=== PATIENT | female | born 1975 | race Caucasian/White ===

== ENCOUNTER 2016-10-21 08:01 | Emergency (ER) | payer BC ==
[2016-10-21] MEDS ORDERED: Sodium Chloride 0.9% 10 ML Syringe FLUSH PRN (08:48)
[2016-10-21] MEDS ORDERED: Prochlorperazine 10 MG/2 ML SDV IVPUSH ONE (08:49)
[2016-10-21] MEDS ORDERED: Ketorolac 30 MG/ML SDV IVPUSH ONE (08:50)
[2016-10-21] MEDS ORDERED: diphenhydrAMINE 50 MG/ML SDV IVPUSH ONE (08:50)
--- NOTE | 2016-10-21 09:29 | CR ---
Chest: Portable view of the chest was obtained. Comparison: Previous chest x-ray of 06/07/16. Heart size and mediastinum are normal. Minimal linear density is seen off the left cardiac apex which is believed to represent minimal scar. Lungs otherwise are clear. Previous cervical spine surgery is noted. Impression: 1. Nothing acute is appreciated on portable chest x-ray. Incidental findings as described above. Diagnostic code #2
--- NOTE | 2016-10-21 09:29 | CT ---
Head CT Technique: Multiple axial sections through the brain were obtained. Intravenous contrast was not utilized. Comparison: Previous MRI brain dated 04/21/12. Findings: Ventricles along with basal cisterns and sulci over the convexities are within normal limits for the patient's age. No abnormal parenchymal densities are seen. No evidence of intracranial hemorrhage. No midline shift or mass effect is seen. Bone window settings were reviewed which shows no discrete calvarial abnormality. Rounded soft tissue abnormality is seen within the right side of the sphenoid sinus which is felt compatible with an incidental retention cyst. This finding measures approximately 1.6 cm. Impression: 1. Right-sided retention cyst incidentally noted within the sphenoid sinus. 2. Other portions of the noncontrast head CT study appear within normal limits. Diagnostic code #2
--- NOTE | 2016-10-21 10:36 | EDM.PDOC ---
ED HPI GENERAL MEDICAL PROBLEM - General Chief Complaint: Headache Stated Complaint: HEAD PAIN Time Seen by Provider: 10/21/16 08:34 Source of Information: Reports: Patient History Limitations: Reports: No Limitations - History of Present Illness INITIAL COMMENTS - FREE TEXT/NARRATIVE: The patient presents with a headache. She has a history of migraines. She had a surgery to decompress her occipital nerve back in May. She has not had a migraine since. Last night she developed a headache and she noticed her blood pressure was elevated 150s over 100s. She denies numbness or weakness. This is like her migraines. It starts in the back of the head and goes to the front. She has no fever, chills, cough, chest pain or shortness of breath. She does feel like she has palpitations. Onset: Gradual Duration: Day(s): (Last night) Location: Reports: Head Quality: Reports: Ache Severity: Severe Improves with: Reports: None Worsens with: Reports: None Context: Reports: Activity Associated Symptoms: Reports: No Other Symptoms Head Pain Score (Numeric/FACES): 7 - Related Data Allergies Allergy/AdvReac Type Severity Reaction Status Date / Time morphine Allergy Difficulty Verified 08/28/15 16:29 Breathing Home Meds: Home Meds Estradiol 2 mg PO BEDTIME 09/11/14 [History] Past Medical History HEENT History: Reports: Impaired Vision Other HEENT History: wears eyeglasses Cardiovascular History: Reports: Heart Murmur, Hypertension Gastrointestinal History: Reports: GERD Genitourinary History: Reports: Renal Calculus 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: Musculoskeletal History: Reports: Back Pain, Chronic Neurological History: Reports: Migraines, Other (See Below) Other Neuro History: decompression of the occipital nerve Psychiatric History: Reports: Anxiety Hematologic History: Reports: Anemia - Infectious Disease History Infectious Disease History: Reports: Chicken Pox, Measles - Past Surgical History Other Neurological Surgeries/Procedures: patient states she has had two back surgery Social & Family History - Tobacco Use Smoking Status *Q: Never Smoker Second Hand Smoke Exposure: No - Caffeine Use Caffeine Use: Reports: Coffee - Recreational Drug Use Recreational Drug Use: No ED ROS GENERAL - Review of Systems Review Of Systems: See Below Constitutional: Reports: No Symptoms HEENT: Reports: No Symptoms Respiratory: Reports: No Symptoms Cardiovascular: Reports: Palpitations. Denies: Chest Pain Endocrine: Reports: No Symptoms GI/Abdominal: Reports: No Symptoms : Reports: No Symptoms Musculoskeletal: Reports: No Symptoms Skin: Reports: No Symptoms - Physical Exam Exam: See Below Exam Limited By: No Limitations General Appearance: Alert, No Apparent Distress Ears: Normal External Exam Nose: Normal Inspection Head Exam: Atraumatic, Normocephalic Neck: Normal Inspection Respiratory/Chest: No Respiratory Distress, Lungs Clear, Normal Breath Sounds Cardiovascular: Regular Rate, Rhythm, No Edema, No Murmur GI/Abdominal: Soft, Non-Tender, No Organomegaly, No Mass Neuro Exam (Abbreviated): Alert, Oriented, No Motor/Sensory Deficits EKG INTERPRETATION EKG Date: 10/21/16 Time: 08:58 Rhythm: NSR Rate (Beats/Min): 83 [place]: Normal P-Wave: Present QRS: Normal ST-T: Normal QT: Normal Course - Vital Signs Last Recorded V/S: Last Vital Signs Temp 97.8 F 10/21/16 08:28 Pulse 104 H 10/21/16 08:28 Resp 16 10/21/16 08:28 BP 170/111 H 10/21/16 08:28 Pulse Ox 98 10/21/16 08:28 - Orders/Labs/Meds Orders: Active Orders 24 hr Category Date Time Status Cardiac Monitoring [RC] . DIRECTED Care 10/21/16 08:48 Active EKG Documentation Completion [RC] STAT Care 10/21/16 08:48 Active Peripheral IV Care [RC] . DIRECTED Care 10/21/16 08:48 Active HCG QUANTITATIVE,SERUM [CHEM] Stat Lab 10/21/16 09:10 Received Sodium Chloride 0.9% [Saline Flush] Med 10/21/16 08:48 Active 10 ml FLUSH ASDIRECTED PRN Peripheral IV Insertion Adult [OM.PC] Stat Oth 10/21/16 08:48 Ordered Medication Orders Sodium Chloride (Saline Flush) 10 ml FLUSH ASDIRECTED PRN PRN Reason: Keep Vein Open Last Admin: 10/21/16 09:00 Dose: 10 ml Labs: Laboratory Tests 10/21/16 10/21/16 Range/Units 09:10 09:10 WBC 7.63 (3.98-10.04) K/mm3 RBC 4.40 (3.98-5.22) M/mm3 Hgb 14.0 (11.2-15.7) gm/L Hct 40.2 (34.1-44.9) % MCV 91.4 (79.4-94.8) fl MCH 31.8 (25.6-32.2) pg MCHC 34.8 (32.2-35.5) g/dl RDW Std Deviation 41.9 (36.4-46.3) fL Plt Count 231 (182-369) K/mm3 MPV 10.1 (9.4-12.3) fl Neut % (Auto) 63.8 (34.0-71.1) % Lymph % (Auto) 23.7 (19.3-51.7) % [place] % (Auto) 11.0 (4.7-12.5) % Eos % (Auto) 0.8 (0.7-5.8) Baso % (Auto) 0.4 (0.1-1.2) % Neut # (Auto) 4.87 (1.56-6.13) K/mm3 Lymph # (Auto) 1.81 (1.18-3.74) K/mm3 [place] # (Auto) 0.84 H (0.24-0.36) K/mm3 Eos # (Auto) 0.06 (0.04-0.36) K/mm3 Baso # (Auto) 0.03 (0.01-0.08) K/mm3 Sodium 138 (136-145) mEq/L Potassium 3.4 L (3.5-5.1) mEq/L Chloride 102 (98-107) mEq/L Carbon Dioxide 26 (21-32) mEq/L Anion Gap 13.4 (5-15) BUN 11 (7-18) mg/dL Creatinine 0.9 (0.55-1.02) mg/dL Est Cr Clr Drug Dosing TNP Estimated GFR (MDRD) > 60 (>60) mL/min BUN/Creatinine Ratio 12.2 L (14-18) Glucose 117 H (74-106) mg/dL Calcium 9.5 (8.5-10.1) mg/dL Total Bilirubin 0.3 (0.2-1.0) mg/dL AST 14 L (15-37) U/L ALT 21 (14-59) U/L Alkaline Phosphatase 72 (46-116) U/L Troponin I < 0.017 (0.00-0.056) ng/mL Total Protein 7.3 (6.4-8.2) g/dl Albumin 3.6 (3.4-5.0) g/dl Globulin 3.7 gm/dL Albumin/Globulin Ratio 1.0 (1-2) Meds: Medications Generic Name Dose Route Start Last Admin Trade Name Freq PRN Reason Stop Dose Admin Sodium Chloride 10 ml 10/21/16 08:48 10/21/16 09:00 Saline Flush FLUSH 10 ml ASDIRECTED PRN Administration Keep Vein Open Discontinued Medications Generic Name Dose Route Start Last Admin Trade Name Freq PRN Reason Stop Dose Admin Diphenhydramine HCl 50 mg 10/21/16 08:50 10/21/16 08:54 Benadryl IVPUSH 10/21/16 08:51 50 mg ONETIME ONE Administration Ketorolac Tromethamine 30 mg 10/21/16 08:50 10/21/16 08:56 Toradol IVPUSH 10/21/16 08:51 30 mg ONETIME ONE Administration Prochlorperazine Edisylate 10 mg 10/21/16 08:49 10/21/16 08:58 Compazine IVPUSH 10/21/16 08:50 10 mg ONETIME ONE Administration - Re-Assessments/Exams Free Text/Narrative Re-Assessment/Exam: 10/21/16 10:39 I ordered an IV saline lock, labs, EKG, CT of her head, and CXR. Her EKG shows a NSR with no acute changes. Her CT of her head shows a right sided retention cyst incidentally noted within the sphenoid sinus. Other portions of the noncontrast head CT study appear within normal limits. Her CXR looks good. All her labs look good. She feels better. Departure - Departure Time of Disposition: 10:50 Disposition: Home, Self-Care 01 Condition: Good Clinical Impression: Migraine, Palpitations - Discharge Information Referrals: Magaly Rangel P[employer]ER PATTERN INSPECTOR [Primary Care Provider] - Forms: ED Department Discharge Additional Instructions: Continue with your medications. Go home and get some rest today. Please return if you are worse. Follow up with Magaly Rangel in a week. - My Orders Last 24 Hours: My Active Orders 10/21/16 08:48 Cardiac Monitoring [RC] . DIRECTED EKG Documentation Completion [RC] STAT Peripheral IV Care [RC] . DIRECTED Sodium Chloride 0.9% [Saline Flush] 10 ml FLUSH ASDIRECTED PRN Peripheral IV Insertion Adult [OM.PC] Stat 10/21/16 09:10 HCG QUANTITATIVE,SERUM [CHEM] Stat - Assessment/Plan Last 24 Hours: My Active Orders 10/21/16 08:48 Cardiac Monitoring [RC] . DIRECTED EKG Documentation Completion [RC] STAT Peripheral IV Care [RC] . DIRECTED Sodium Chloride 0.9% [Saline Flush] 10 ml FLUSH ASDIRECTED PRN Peripheral IV Insertion Adult [OM.PC] Stat 10/21/16 09:10 HCG QUANTITATIVE,SERUM [CHEM] Stat
[2016-10-21 11:15] VITALS: BP 125/71
== END 2016-10-21 11:12 | disposition home or self-care (01) ==
LOC: JD.ED 08:01
DX: G43.909 Migraine, unspecified, not intractable, without status migrainosus (principal); R00.2 Palpitations; I10 Essential (primary) hypertension; K21.9 Gastro-esophageal reflux disease without esophagitis; Z87.442 Personal history of urinary calculi; Z86.2 Personal history of diseases of the blood and blood-forming organs and certain disorders involving the immune mechanism; Z88.5 Allergy status to narcotic agent
CPT/HCPCS: 36415; 70450; 71010; 80053; 84484; 84702; 85025; 93005; 96374; 96375; 99285; J0780; J1200; J1885; J7050; 99284

== ENCOUNTER 2019-10-13 06:35 | Day surgery (SDC) | payer OTHER ==
--- NOTE | 2019-10-12 09:25 | PCM.PREANE ---
Preanesthetic Assessment - Procedure Proposed Procedure: Left KVA with ACL reconstruction with allograft - Anesthesia/Transfusion/Family Hx Anesthesia History: Prior Anesthesia Without Reaction Family History of Anesthesia Reaction: No Transfusion History: No Prior Transfusion(s) Intubation History: Unknown - Review of Systems General: No Symptoms Pulmonary: No Symptoms (ETOH:rarely) Cardiovascular: No Symptoms (history of elevated cholesterol/HTN) Gastrointestinal: No Symptoms (GERD-rarely) Neurological: No Symptoms (History of chronic lower back pain/ back surgery:L5- S1 fusion times 2: 2008), Headache (migraines) Other: Reports: None, Sinus Problem (allergic rhinitis), Neck Pain (Prior C- spine surgery: C5-C6 2010), Depression, Anxiety - Physical Assessment NPO Status Date: 10/12/19 NPO Status Time: 19:00 Vital Signs: HR:70 B/P:115/82 Sat:100% Resp:16 Temp:97 Height: 1.68 m Weight: 87.543 kg ASA Class: 2 Mental Status: Alert & Oriented x3 Airway Class: Mallampati = 2 Dentition: Reports: Normal Dentition, Caries Thyro-Mental Finger Breadths: 3 Mouth Opening Finger Breadths: 3 ROM/Head Extension: Full Lungs: Clear to Auscultation, Normal Respiratory Effort Cardiovascular: Regular Rate, Regular Rhythm, No Murmurs - Lab Values: Laboratory Last Values MRSA (PCR) Negative 10/06/19 12:56 All labs reviewed and noted and within acceptable ranges to proceed with scheduled procedure. - Imaging/EKG Impressions: CXR: negative/Previous C-spine surgery noted. EKG: SR rate=82, mild Twave inversion noted in leads III, and V3. - Allergies Allergies/Adverse Reactions: Allergies Allergy/AdvReac Type Severity Reaction Status Date / Time morphine Allergy Difficulty Verified 10/12/19 13:40 Breathing - Anesthesia Plan Pre-Op Medication Ordered: None - Acknowledgements Anesthesia Type Planned: General Anesthesia (Left adductor canal block under US guidance for post operative pain control requested by Dr. 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: Musculoskeletal History: Reports: Back Pain, Chronic Neurological History: Reports: Migraines, Other (See Below) Other Neuro History: decompression of the occipital nerve Psychiatric History: Reports: Anxiety Hematologic History: Reports: Anemia - Infectious Disease History Infectious Disease History: Reports: Chicken Pox, Measles - Past Surgical History Other Neurological Surgeries/Procedures: patient states she has had two back surgery - HOME MEDS Home Medications: Home Meds Eletriptan [Relpax] 40 mg PO ASDIRECTED PRN 10/12/19 [History] Estrogens, Conjugated [Premarin] 1.25 mg PO DAILY 10/12/19 [History] FLUoxetine HCl [Fluoxetine HCl] 20 mg PO DAILY 10/12/19 [History] lisinopriL [Lisinopril] 10 mg PO DAILY 10/12/19 [History] Acetaminophen/HYDROcodone [[place] 325-5 MG] 1 - 2 tab PO Q6H PRN #40 tablet 10/13/19 [Rx] Aspirin 325 mg PO BID #84 tab 10/13/19 [Rx] Cyclobenzaprine [Flexeril] 10 mg PO Q12H PRN #30 tab 10/13/19 [Rx] - CURRENT (IN HOUSE) MEDS Current Meds: Current Medications Lactated Ringer's (Ringers, Lactated) 1,000 mls @ 125 mls/hr IV ASDIRECTED [place] Lidocaine/Sodium Bicarbonate (Buffered Lidocaine 1% In Ns 8.4%) 0.25 ml IDERM ONETIME PRN PRN Reason: Prior to IV Start Sodium Chloride (Saline Flush) 10 ml FLUSH ASDIRECTED PRN PRN Reason: Keep Vein Open
--- NOTE | 2019-10-12 09:39 | PCM.SN.2 ---
- Free Text/Narrative Note: Left selective femoral nerve block at the adductor canal for post-procedure pain control under US guidance requested by Dr. Dejesus. Time Out: 908 Start: 909 End: 928 Chart reviewed. Consent signed. Questions answered. Appropriate monitors applied. Time out performed. Left mid-shaft femur identified with ultrasound, scanning medially of femur, the femoral artery in the adductor canal visualized, and the femoral nerve located laterally to the artery. The skin was prepped lateral to the ultrasound probe with chlorahexadine times two. The 21ga 4 insulated block needle was inserted under direct ultrasound guidance into the adductor canal. 25mL of 0.5% ropivacaine with 1:200,000 epinephrine was i njected circumferentially around the nerve with intermittent negative aspiration noted. Patient tolerated the procedure well. Sterile technique noted along with sterile gloves, mask, and sterile probe cover. See picture on progress note and vital signs on nurses notes. Block completed in PACU. Lisa Duarte CRNA
[~2019-10-13 06:35] MED LIST: Dexamethasone 4 MG/ML 5 ML MDV ONE; EPINEPHrine 1 MG/ML SDV ONE; HYDROmorphone 0.5 MG/0.5 ML Syringe ONE; Ketorolac 30 MG/ML SDV ONE; Lactated Ringers 1,000 ML IV SCH; Lactated Ringers 1,000 ML ONE; Lidocaine 1% 2 ML ONE; Lidocaine 1% 6 ML ONE; Lidocaine 1%/Sod Bicarbonate in NS 8.4% 1 ML Syringe IDERM PRN; Midazolam 1 MG/ML 2 ML SDV ONE; Ondansetron 4 MG/2 ML SDV ONE; Propofol 200 MG/20 ML SDV ONE; Ropivacaine 0.5% 5 MG/ML 30 ML SDV ONE; Sodium Chloride 0.9% 10 ML Syringe FLUSH PRN; ceFAZolin 1 GM Vial ONE; fentaNYL 250 MCG/5 ML SDV ONE
[2019-10-13] MEDS ORDERED: Bupivacaine 0.25% 10 ML SDV ONE (06:59)
[2019-10-13] MEDS ORDERED: diphenhydrAMINE 50 MG/ML SDV IVPUSH PRN (07:37)
[2019-10-13] MEDS ORDERED: HYDROmorphone 0.5 MG/0.5 ML Syringe IVPUSH PRN (07:37)
[2019-10-13] MEDS ORDERED: fentaNYL 100 MCG/2 ML SDV IVPUSH PRN (07:37)
[2019-10-13] MEDS ORDERED: ePHEDrine 50 MG/ML SDV IVPUSH PRN (07:37)
[2019-10-13] MEDS ORDERED: Ondansetron 4 MG/2 ML SDV IVPUSH PRN (07:37)
[2019-10-13] MEDS ORDERED: ePHEDrine Sulfate/0.9% NaCl/Pf 25 MG/5 ML SYRINGE IV ONE (07:45)
[2019-10-13] MEDS ORDERED: Phenylephrine 1 MG in Sodium Chloride 0.9% 10 ML IV SCH (07:45)
[2019-10-13] MEDS ORDERED: HYDROmorphone 0.5 MG/0.5 ML Syringe ONE (07:57)
[2019-10-13] MEDS ORDERED: EPINEPHrine 1 MG/ML 30 ML MDV IRR SCH (08:00)
--- NOTE | 2019-10-13 08:51 | CR ---
Left knee: Single AP spot view utilizing C-arm device was obtained. Comparison: Previous left knee MRI of 05/11/19. Findings: Study shows an anchor for ACL repair. Fluoroscopy time given as 4.0 seconds. Impression: 1. Procedural study as noted above. Diagnostic code #2 This report was dictated in MDT
--- NOTE | 2019-10-13 09:51 | PCM.POSTAN ---
POST ANESTHESIA ASSESSMENT - MENTAL STATUS Mental Status: Alert - VITAL SIGNS Vital Signs: Last Vital Signs Temp 98.3 10/13/19 09:05 Pulse 94 10/13/19 0905 Resp 14 10/13/19 09:05 BP 106/65 10/13/19 09:05 Pulse Ox 97 10/13/19 09:05 - RESPIRATORY Respiratory Status: Respiratory Rate WNL, Airway Patent, O2 Saturation Stable, Supplemental Oxygen - CARDIOVASCULAR CV Status: Pulse Rate WNL, Blood Pressure Stable - GASTROINTESTINAL GI Status: No Symptoms - POST OP HYDRATION Hydration Status: Adequate & Stable
[2019-10-13] MEDS ORDERED: Acetaminophen/HYDROcodone 325-5 MG Tab PO PRN (10:35)
[2019-10-13 10:38] VITALS: BP 103/75; PULSE 84
--- NOTE | 2019-10-13 10:47 | PCM48HPAN ---
Post Anesthesia Note - EVALUATION WITHIN 48HRS OF ANESTHETIC Vital Signs in Normal Range: Yes Patient Participated in Evaluation: Yes Respiratory Function Stable: Yes Airway Patent: Yes Cardiovascular Function Stable: Yes Hydration Status Stable: Yes Pain Control Satisfactory: Yes Nausea and Vomiting Control Satisfactory: Yes Mental Status Recovered: Yes Vital Signs: Last Vital Signs Temp 36.5 C 10/13/19 10:00 Pulse 84 10/13/19 10:30 Resp 14 10/13/19 10:30 BP 103/75 10/13/19 10:30 Pulse Ox 98 10/13/19 10:30
--- NOTE | 2019-10-21 07:55 | PCM.OPNOTE ---
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
--- NOTE | 2019-10-21 08:39 | OR ---
DATE OF OPERATION: 10/13/2019 SURGEON: Lambert Dejesus MD OPERATION PERFORMED: Left knee anterior cruciate ligament reconstruction with allograft. PREOPERATIVE DIAGNOSIS: Left knee anterior cruciate ligament deficiency. POSTOPERATIVE DIAGNOSIS: Left knee anterior cruciate ligament deficiency. ANESTHESIA: General LMA with MAC and regional femoral block. ANESTHESIA PROVIDER: Lisa Duarte CRNA ASSISTANTS: Amanda Arzate PA-C and Em Proctor LPN. ESTIMATED BLOOD LOSS: 5 mL. COMPLICATIONS: None. CONDITION: Stable. DESCRIPTION OF PROCEDURE: The patient was identified in the preop holding area. Proper site was marked and identified by the surgeon. The patient was taken back to the operative theater where after adequate anesthesia, the patient's right lower extremity was placed in a well leg quintana. Left lower extremity had a nonsterile tourniquet applied and was placed in a C-clamp quintana. Foot of the bed was then lowered. Left lower extremity was then sterilely prepped and draped in the usual sterile fashion. OR time-out was performed. The patient received 2 g IV Ancef. Left lower extremity was exsanguinated. Tourniquet was insufflated to 250 mmHg. Standard anterolateral portal incision was made next to the patellar tendon. Scope trocar was introduced. The patient had no significant chondromalacia noted of the patellofemoral joint. Attention was turned to the medial compartment. Anteromedial portal was made with the use of a spinal needle. The patient had no medial meniscus tear. There was no chondromalacia of the medial compartment. There was noted to be complete disruption of the ACL off the femoral attachment. Lateral compartment showed no chondromalacia or meniscal tear. At this time, graft was opened on the back table and was prepared by Amanda Arzate PA-C and Em Proctor LPN for a length of 80 mm and it was able to fit through a 9.5 tunnel. At this time, the old fibers of the ACL were cleaned up. The guide for the tibial tunnel was then placed at 55 degrees and a 10 mm reamer was used and the old footprint of the ACL was found to be in adequate position. At this time, the flip cutter at 105 degrees with a guide was placed at the posterior portion of the lateral femoral condyle with roughly 2 to 3 mm rim posteriorly. The 9.5 flip cutter was then placed and drilled to a tunnel length of 20 mm. The graft was passed up through the tibial tunnel and into the femoral tunnel. The Endobutton was flipped. C-arm fluoroscopy was utilized to make sure the Endobutton was not caught on soft tissue. It was found to be in proper position. The graft was then placed up into the femoral tunnel and was tensioned. Knee was brought through a cycle range of motion. There was no impingement in the notch noted. Drill hole was then placed for 4.5 Sim screw with a washer. The suture limbs of the tibial tunnel were then tied over this post and it was tightened and found to be adequate tension with negative anterior drawer under direct visualization. Graft was found to be in proper position, not impinging on the PCL or the notch. Adequate saline was irrigated through all wounds. Vicryl was used for subcutaneous closure. Monocryl was used for subcuticular closure. The patient had a sterile soft dressing applied and a hinged knee brace locked in extension and was sent to the PACU in stable condition. RENEE /[id number]
== END 2019-10-13 11:13 | disposition home or self-care (01) ==
LOC: JD.SDS 06:35
PROVIDERS: ATTEND Orthopaedic Surgery
DX: M23.52 Chronic instability of knee, left knee (principal); I10 Essential (primary) hypertension; K21.9 Gastro-esophageal reflux disease without esophagitis; F41.9 Anxiety disorder, unspecified; Z11.59 Encounter for screening for other viral diseases; Z79.899 Other long term (current) drug therapy; Z79.82 Long term (current) use of aspirin; Z88.5 Allergy status to narcotic agent
CPT/HCPCS: 27428; 76000; 87635; 87641; A9270; C1713; C1762; J0171; J0690; J1100; J1170; J1885; J2001; J2250; J2405; J2704; J2795; J3010; J3490; J7120; 01400; 64450; U0002

== ENCOUNTER 2023-08-12 00:51 | Emergency (ER) | payer BC ==
[2023-08-12 01:00] VITALS: BP 129/76; PULSE 84
[2023-08-12] MEDS ORDERED: Azithromycin 250 MG Tab PO ONE (01:34)
== END 2023-08-12 01:43 | disposition home or self-care (01) ==
LOC: JD.ED 00:51
DX: J40 Bronchitis, not specified as acute or chronic (principal); L50.9 Urticaria, unspecified; I10 Essential (primary) hypertension; K21.9 Gastro-esophageal reflux disease without esophagitis; Z88.5 Allergy status to narcotic agent; Z79.899 Other long term (current) drug therapy; Z79.82 Long term (current) use of aspirin; Z90.710 Acquired absence of both cervix and uterus
CPT/HCPCS: 99282

== ENCOUNTER 2024-11-19 07:54 | Emergency (ER) | payer BC ==
[2024-11-19] MEDS ORDERED: Ketorolac 60 MG/2 ML SDV IVPUSH STA (07:56)
[2024-11-19] MEDS ORDERED: Sodium Chloride 0.9% 10 ML Syringe FLUSH PRN (09:00)
[2024-11-19 09:12] LABS: BASOPHILS ABSOLUTE AUTO 0.0 K/mm3 (0.0-0.2); BASOPHILS PERCENT AUTO 0.1 % (0.0-1.0); EOSINOPHILS ABSOLUTE AUTO 0.0 K/mm3 (0.0-0.4); EOSINOPHILS PERCENT AUTO 0.0 % (0.0-6.0); IMMATURE GRAN ABSOLUTE AUTO 0.05 K/mm3 (0.00-0.05); IMMATURE GRAN PERCENT AUTO 0.5 % (0.0-0.4); LYMPHOCYTES ABSOLUTE AUTO 1.8 K/mm3 (1.0-4.8); LYMPHOCYTES PERCENT AUTO 16.4 % (24.0-44.0); MEAN PLATELET VOLUME 10.0 fl (9.4-12.3); MONOCYTES ABSOLUTE AUTO 0.9 K/mm3 (0.0-0.8); MONOCYTES PERCENT AUTO 8.3 % (0.0-8.0); NEUTROPHILS ABSOLUTE AUTO 8.1 K/mm3 (1.8-7.7); NEUTROPHILS PERCENT AUTO 74.7 % (41.0-71.0); NRBC ABSOLUTE 0.00 (0.00-0.02); NRBC PERCENT 0.0 % (0.0-0.2); PLATELET COUNT,PLT 235 K/mm3 (150-400); RED BLOOD CELL COUNT 4.48 M/mm3 (4.10-5.30); WHITE BLOOD CELL COUNT,WBC 10.88 K/mm3 (3.9-11.3)
[2024-11-19] MEDS ORDERED: Naloxone 0.4 MG/ML SDV IVPUSH PRN (09:19)
[2024-11-19 09:41] LABS: INR 1.01
[2024-11-19 09:43] LABS: APPEARANCE,URINE CLOUDY (Clear); GLUCOSE,URINE NEGATIVE (Negative); OCCULT BLOOD,URINE TRACE-INTACT (Negative)
[2024-11-19] MEDS: Ketorolac 30 MG/ML SDV IVPUSH STA (09:46)
[2024-11-19] MEDS: Ondansetron 4 MG/2 ML SDV IVPUSH ONE (09:46)
[2024-11-19 09:50] LABS: BUPRENORPHINE SCREEN,URINE NEGATIVE (CUTOFF=10); METHADONE SCREEN, URINE NEGATIVE (CUTOFF=200); METHAMPHETAMINES SCREEN, URINE NEGATIVE (CUTOFF=500); OXYCODONE SCREEN,URINE NEGATIVE (CUT0FF=100); THC SCREEN,URINE 20 NG/ML NEGATIVE (CUTOFF=50)
[2024-11-19 09:52] LABS: A/G RATIO 1.3 (1-2); ALANINE AMINOTRANSFERASE,ALT 31.0 U/L (14-59); ASPARTATE AMNIOTRANSFERASE,AST 17.0 U/L (15-37); BILIRUBIN TOTAL 0.9 mg/dL (0.2-1.0); BLOOD UREA NITROGEN,BUN 20.0 mg/dL (7-18); CARBON DIOXIDE,CO2 28.0 mEq/L (21-32); CHLORIDE,CL 104.0 mEq/L (98-107); CREATINE KINASE,CK 180.0 U/L (26-192); CREATININE 1.0 mg/dL (0.55-1.02); EST CRCL DRUG DOSING (CG) 63.71 mL/min; ESTIMATED GFR 69.0 mL/min (>60); GLUCOSE RANDOM 107.0 mg/dL (70-99); POTASSIUM,K 4.2 mEq/L (3.5-5.1); PROTEIN TOTAL,TP 7.0 g/dl (6.4-8.2); SODIUM,NA 139.0 mEq/L (136-145)
[2024-11-19] MEDS: fentaNYL 100 MCG/2 ML SDV IVPUSH PRN (09:57)
[2024-11-19 09:58] LABS: AMPHETAMINES SCREEN, URINE NEGATIVE (CUTOFF=500)
[2024-11-19] MEDS: Acetaminophen/oxyCODONE 325-5 MG Tab PO ONE (14:19)
[2024-11-19 19:51] VITALS: BP 129/79; PULSE 79
== END 2024-11-19 15:30 | disposition home or self-care (01) ==
LOC: JD.ED 07:54
DX: N13.2 Hydronephrosis with renal and ureteral calculous obstruction (principal); I10 Essential (primary) hypertension; K21.9 Gastro-esophageal reflux disease without esophagitis; Z88.5 Allergy status to narcotic agent; Z79.82 Long term (current) use of aspirin; Z79.899 Other long term (current) drug therapy
CPT/HCPCS: 36415; 74176; 80053; 80306; 81001; 82550; 83690; 83735; 84703; 85025; 85610; 96361; 96374; 96375; 99283; A9270; J1885; J2405; J3010; J7030; 99284; J1171